=== PATIENT | female | born 1980 | race Caucasian/White ===

== ENCOUNTER 2020-07-12 08:00 | Outpatient (CLI) | payer OTHER | END 2020-07-12 15:00 | disposition home or self-care (01) | LOC: PPH VACUNA 08:00 | DX: Z23 Encounter for immunization (principal) ==

== ENCOUNTER 2020-08-01 10:23 | Emergency (ER) | payer OTHER ==
[~2020-08-01] VITALS: Ht 172.7 cm; Wt 111.1 kg
[2020-08-01] MEDS ORDERED: AVALIDE 300-121 EACH PO (10:30)
[2020-08-01] MEDS ORDERED: TOPROL XL50 M1 PO (10:30)
[2020-08-01] MEDS ORDERED: KETO10TA2 PO (12:46)
== END 2020-08-01 12:56 | disposition home or self-care (01) ==
LOC: ER 10:23
DX: S63.682A Other sprain of left thumb, initial encounter (principal); X50.0XXA Overexertion from strenuous movement or load, initial encounter; Y93.89 Activity, other specified; Y92.69 Other specified industrial and construction area as the place of occurrence of the external cause; Y99.8 Other external cause status

== ENCOUNTER → 2020-10-15 | Outpatient (CLI) | payer OTHER ==
[~2020-10-15] MED LIST: AVALIDE 300-121 EACH PO; KETO10TA2 PO; TOPROL XL50 M1 PO
== END | disposition home or self-care (01) ==
LOC: OFIC 805 16:09
PROVIDERS: ATTEND Otolaryngology Otology & Neurotology
DX: H93.13 Tinnitus, bilateral (principal); H90.42 Sensorineural hearing loss, unilateral, left ear, with unrestricted hearing on the contralateral side

== ENCOUNTER 2020-11-16 13:19 | Outpatient (CLI) | payer OTHER | END 2020-11-16 13:32 | disposition home or self-care (01) | LOC: RAD 13:19 → MAMO-SONO 14:45 | PROVIDERS: ATTEND Surgery | DX: M51.36 Other intervertebral disc degeneration, lumbar region (principal); N60.11 Diffuse cystic mastopathy of right breast; N60.12 Diffuse cystic mastopathy of left breast ==

== ENCOUNTER 2021-05-16 09:38 | Outpatient (CLI) | payer OTHER | END 2021-05-16 15:00 | disposition home or self-care (01) | LOC: LAB 09:38 | PROVIDERS: ATTEND Radiology Diagnostic Radiology | DX: R19.4 Change in bowel habit (principal) ==

== ENCOUNTER 2021-05-17 07:45 | Outpatient (CLI) | payer OTHER | END 2021-05-17 07:50 | disposition home or self-care (01) | LOC: TOM 07:45 → MAMO-SONO 13:15 | PROVIDERS: ATTEND Surgery | DX: R19.4 Change in bowel habit (principal); N83.209 Unspecified ovarian cyst, unspecified side ==

== ENCOUNTER 2021-05-23 16:34 | Outpatient (CLI) | payer OTHER | END 2021-05-23 16:37 | disposition home or self-care (01) | LOC: LAB 16:34 | DX: Z03.818 Encounter for observation for suspected exposure to other biological agents ruled out (principal) ==